=== PATIENT | female | born 1965 ===

== ENCOUNTER → 2024-05-10 | Emergency (ER) | payer OTHER ==
[~2024-05-10] VITALS: Ht 165.1 cm; Wt 90.0 kg
[2024-05-10 18:27] VITALS: TEMP 97.6
[2024-05-10 20:59] VITALS: BP 131/72; PULSE 72; RESP 18; O2SAT 99
== END | disposition home or self-care (01) ==
LOC: EMS 18:22
DX: S46.092A Other injury of muscle(s) and tendon(s) of the rotator cuff of left shoulder, initial encounter (principal); I10 Essential (primary) hypertension; X50.0XXA Overexertion from strenuous movement or load, initial encounter; Y93.89 Activity, other specified; Y92.89 Other specified places as the place of occurrence of the external cause; Y99.8 Other external cause status
CPT/HCPCS: 99283